=== PATIENT | male | born 1955 | race Asian ===

== ENCOUNTER 2021-09-27 11:13 | Inpatient (IN) | payer OTHER, SELFPAY ==
[~2021-09-27] VITALS: Ht 170.2 cm; Wt 40.8 kg
[2021-09-27 11:30] VITALS: BP_SYST 133
[2021-09-27] MEDS ORDERED: NACL 0.9% 1,000 ML IV ONE (11:30)
[2021-09-27 12:00] LABS: BASOPHILS % (AUTO) 0.1 % (0.0-2.0); EOSINOPHILS % (AUTO) 0.2 % (0.0-4.0); HEMATOCRIT 26.5 % (36-54); HEMOGLOBIN 8.7 g/dL (14.0-18.0); LYMPHOCYTES # (AUTO) 0.6 K/uL (1.0-5.5); LYMPHOCYTES % (AUTO) 4.6 % (20.5-51.5); MEAN CORPUSCULAR HEMOGLOBIN 30 pg (27-31); MEAN CORPUSCULAR HGB CONC 33 % (32-36); MEAN CORPUSCULAR VOLUME 90 fL (79.0-98.0); MONOCYTES # (AUTO) 0.5 K/uL (0.0-1.0); MONOCYTES % (AUTO) 4.2 % (1.7-9.3); NEUTROPHILS # (AUTO) 11.2 K/uL (1.8-7.7); NEUTROPHILS % (AUTO) 90.9 % (40.0-70.0); PLATELET COUNT (AUTO) 395 K/uL (130-430); RED BLOOD CELL COUNT(AUTO) 2.93 MIL/uL (4.2-6.2); RED CELL DISTRIBUTION WIDTH 16.7 % (9.0-15.0); WHITE BLOOD COUNT (AUTO) 12.3 K/uL (4.8-10.8)
[2021-09-27] MEDS ORDERED: LACT1TAB14 PO (12:12)
[2021-09-27] MEDS ORDERED: ACET325T53 PO (12:12)
[2021-09-27] MEDS ORDERED: MEGE20TA3 PO (12:12)
[2021-09-27] MEDS ORDERED: PANT20TA2 PO (12:12)
[2021-09-27] MEDS ORDERED: LOSA25TA3 PO (12:12)
[2021-09-27] MEDS ORDERED: OXYC10TA48 PO (12:12)
[2021-09-27] MEDS ORDERED: PROVENTIL HFA (12:12)
[2021-09-27] MEDS ORDERED: CYCL7.5T20 PO (12:12)
[2021-09-27] MEDS ORDERED: FOLI-43 PO (12:12)
[2021-09-27] MEDS ORDERED: DOCU250C14 PO (12:12)
[2021-09-27] MEDS ORDERED: FLO44 INH (12:12)
[2021-09-27] MEDS ORDERED: GUAI-723 PO (12:12)
[2021-09-27] MEDS ORDERED: FER300L PO (12:12)
[2021-09-27] MEDS ORDERED: SODIUM CHLORIDE (12:12)
[2021-09-27] MEDS ORDERED: AMIN30LI31 PO (12:12)
[2021-09-27] MEDS ORDERED: SUCR1TAB78 PO (12:12)
[2021-09-27] MEDS ORDERED: MULT9LIQ PO (12:12)
[2021-09-27 12:59] LABS: ANION GAP 9 (5-15); CHLORIDE 100 mmol/L (98-107); CREATININE 0.64 mg/dL (0.55-1.30); GLUCOSE 104 mg/dL (70-99); POTASSIUM 3.8 mmol/L (3.5-5.1); SODIUM SERUM 141 mmol/L (136-145); UREA NITROGEN, BLOOD 38 mg/dL (8-21)
[2021-09-27 13:01] LABS: GFR AFRICAN AMERICAN 162 mL/min (>90)
[2021-09-27 13:09] LABS: ACETONE, SERUM NEGATIVE (NEGATIVE); ALANINE AMINOTRANSFERASE 28 U/L (12-78); ALBUMIN 2.5 g/dL (3.4-4.8); ASPARTATE AMINOTRANSFERASE 38 U/L (10-37); TOTAL BILIRUBIN 0.5 mg/dL (0.0-1.0)
[2021-09-27 13:40] LABS: BILIRUBIN,URINE NEGATIVE (NEGATIVE); BLOOD, URINE 1+ (NEGATIVE); CLARITY/URINE CLEAR (CLEAR); COLOR,URINE YELLOW (YELLOW); GLUCOSE,URINE NEGATIVE (NEGATIVE); KETONES,URINE 1+ (NEGATIVE); LEUKOCYTE ESTERASE ,URINE NEGATIVE (NEGATIVE); NITRITE, URINE NEGATIVE (NEGATIVE); PH,URINE 5.5 (5.0-8.0); PROTEIN URINE TRACE (NEGATIVE); UROBILINOGEN,URINE 0.2 (0.2-1.0)
[2021-09-27 13:48] LABS: BACTERIA,URINE FEW /HPF (None Seen); MUCUS,URINE 1+ /LPF (None Seen); WBC,URINE 0-3 /HPF (0-3)
[2021-09-27] MEDS ORDERED: LEVOFLOXACIN IN DEXTROSE 5 % 100 ML IV ONE (14:00)
[2021-09-27] MEDS: D5NS 1,000 ML IV SCH (15:48)
[2021-09-27] MEDS ORDERED: ZOLPIDEM TARTRATE 5 MG TABLET PO PRN (16:30)
[2021-09-27] MEDS ORDERED: IPRATROPIUM/ALBUTEROL SULFATE 3 ML AMPUL.NEB (DUONEB) INH PRN (16:30)
[2021-09-27] MEDS ORDERED: MORPHINE 2 MG/ML INJ. SYRINGE IVP PRN ×2 (16:30)
[2021-09-27] MEDS ORDERED: MUPIROCIN 2% TOPICAL OINTMENT 22 GM NS PRN (16:30)
[2021-09-27] MEDS ORDERED: ACETAMINOPHEN 325 MG TABLET PO PRN ×2 (16:30→17:15)
[2021-09-27] MEDS ORDERED: ONDANSETRON HCL 4 MG/2 ML VIAL IVP PRN (16:30)
[2021-09-27] MEDS ORDERED: LORazepam 2 MG/ML VIAL IVP PRN (16:30)
[2021-09-27] MEDS ORDERED: POTASSIUM CHLORIDE 20 MEQ TAB.PRT.SR PO PRN (16:30)
[2021-09-27] MEDS ORDERED: DOCUSATE SODIUM 100 MG CAPSULE PO PRN (16:30)
[2021-09-27] MEDS ORDERED: NALOXONE HCL 0.4 MG/ML AMP (NARCAN) IVP PRN ×2 (16:30)
[2021-09-27] MEDS ORDERED: MAGNESIUM SULFATE 50 ML IV PRN (16:30)
[2021-09-27 16:31] VITALS: BP_SYST 133
[2021-09-27 21:33] VITALS: BP_SYST 135
[2021-09-27] MEDS: METOPROLOL TARTRATE 25 MG TABLET PO SCH (23:28)
[2021-09-27] MEDS: HEPARIN SODIUM,PORCINE 5,000 UNITS/ML VIAL SUBCUT SCH (23:36)
[2021-09-28 00:23] VITALS: BP_SYST 144
[2021-09-28] MEDS: D5NS 1,000 ML IV SCH ×2 (07:00→15:40)
[2021-09-28 08:00] VITALS: BP_SYST 140
[2021-09-28 08:16] LABS: CREATININE 0.65 mg/dL (0.55-1.30); POTASSIUM 3.5 mmol/L (3.5-5.1)
[2021-09-28 08:22] LABS: HEMATOCRIT 25.5 % (36-54); HEMOGLOBIN 8.4 g/dL (14.0-18.0); LYMPHOCYTES # (AUTO) 0.5 K/uL (1.0-5.5); LYMPHOCYTES % (AUTO) 6.3 % (20.5-51.5); MEAN CORPUSCULAR HEMOGLOBIN 30 pg (27-31); MEAN CORPUSCULAR HGB CONC 33 % (32-36); MEAN CORPUSCULAR VOLUME 90 fL (79.0-98.0); MONOCYTES # (AUTO) 0.6 K/uL (0.0-1.0); MONOCYTES % (AUTO) 7.3 % (1.7-9.3); NEUTROPHILS # (AUTO) 7.2 K/uL (1.8-7.7); NEUTROPHILS % (AUTO) 86.4 % (40.0-70.0); PLATELET COUNT (AUTO) 354 K/uL (130-430); RED BLOOD CELL COUNT(AUTO) 2.84 MIL/uL (4.2-6.2); RED CELL DISTRIBUTION WIDTH 16.4 % (9.0-15.0); WHITE BLOOD COUNT (AUTO) 8.4 K/uL (4.8-10.8)
[2021-09-28] MEDS: PANTOPRAZOLE SODIUM 40 MG/VIAL (PROTONIX) IVP SCH ×2 (08:44→23:25)
[2021-09-28] MEDS: METOPROLOL TARTRATE 25 MG TABLET PO SCH ×2 (08:45→21:00)
[2021-09-28] MEDS: HEPARIN SODIUM,PORCINE 5,000 UNITS/ML VIAL SUBCUT SCH ×2 (08:47→23:29)
[2021-09-28 08:53] LABS: CALCIUM 12.7 mg/dL (8.4-11.0)
[2021-09-28 12:00] VITALS: BP_SYST 143
[2021-09-28] MEDS: LEVOFLOXACIN IN DEXTROSE 5 % 100 ML IV SCH (15:38)
[2021-09-28 15:51] VITALS: BP_SYST 154
[2021-09-28 19:00] VITALS: BP_SYST 150
[2021-09-28 20:00] VITALS: BP_SYST 156
[2021-09-29] VITALS: BP_SYST 148
[2021-09-29] MEDS: D5NS 1,000 ML IV SCH (03:45)
[2021-09-29 07:20] LABS: BASOPHILS % (AUTO) 0.1 % (0.0-2.0); HEMATOCRIT 24.6 % (36-54); LYMPHOCYTES # (AUTO) 0.8 K/uL (1.0-5.5); LYMPHOCYTES % (AUTO) 9.3 % (20.5-51.5); MEAN CORPUSCULAR HEMOGLOBIN 30 pg (27-31); MEAN CORPUSCULAR HGB CONC 33 % (32-36); MEAN CORPUSCULAR VOLUME 91 fL (79.0-98.0); MONOCYTES # (AUTO) 0.4 K/uL (0.0-1.0); MONOCYTES % (AUTO) 4.3 % (1.7-9.3); NEUTROPHILS # (AUTO) 7.9 K/uL (1.8-7.7); NEUTROPHILS % (AUTO) 86.3 % (40.0-70.0); PLATELET COUNT (AUTO) 308 K/uL (130-430); RED BLOOD CELL COUNT(AUTO) 2.69 MIL/uL (4.2-6.2); RED CELL DISTRIBUTION WIDTH 16.8 % (9.0-15.0); WHITE BLOOD COUNT (AUTO) 9.1 K/uL (4.8-10.8)
[2021-09-29 08:10] LABS: CREATININE 0.77 mg/dL (0.55-1.30); POTASSIUM 3.6 mmol/L (3.5-5.1)
[2021-09-29 08:23] LABS: CALCIUM 12.8 mg/dL (8.4-11.0)
[2021-09-29 09:00] VITALS: BP_SYST 130
[2021-09-29] MEDS: METOPROLOL TARTRATE 25 MG TABLET PO SCH ×2 (09:00→22:15)
[2021-09-29] MEDS: HEPARIN SODIUM,PORCINE 5,000 UNITS/ML VIAL SUBCUT SCH ×3 (09:00→22:17)
[2021-09-29] MEDS: PANTOPRAZOLE SODIUM 40 MG/VIAL (PROTONIX) IVP SCH ×3 (09:00→22:18)
[2021-09-29] MEDS ORDERED: D5/0.45 NS 1,000 ML IV SCH (09:00)
[2021-09-29 12:39] VITALS: BP_SYST 146
[2021-09-29 12:58] LABS: INR 1.1 (0.80-1.20); PROTHROMBIN TIME 11.4 SECS (9.5-12.5)
[2021-09-29] MEDS: LEVOFLOXACIN IN DEXTROSE 5 % 100 ML IV SCH (16:25)
[2021-09-29 16:26] VITALS: BP_SYST 155
[2021-09-30] VITALS (7 sets, daily range): BP systolic 143–157
[2021-09-30 06:07] LABS: BASOPHILS % (AUTO) 0.1 % (0.0-2.0); HEMATOCRIT 27.7 % (36-54); LYMPHOCYTES # (AUTO) 0.7 K/uL (1.0-5.5); LYMPHOCYTES % (AUTO) 7.4 % (20.5-51.5); MEAN CORPUSCULAR HEMOGLOBIN 30 pg (27-31); MEAN CORPUSCULAR HGB CONC 32 % (32-36); MEAN CORPUSCULAR VOLUME 91 fL (79.0-98.0); MONOCYTES # (AUTO) 0.4 K/uL (0.0-1.0); MONOCYTES % (AUTO) 4.2 % (1.7-9.3); NEUTROPHILS # (AUTO) 8.7 K/uL (1.8-7.7); NEUTROPHILS % (AUTO) 88.3 % (40.0-70.0); PLATELET COUNT (AUTO) 288 K/uL (130-430); RED BLOOD CELL COUNT(AUTO) 3.04 MIL/uL (4.2-6.2); RED CELL DISTRIBUTION WIDTH 16.3 % (9.0-15.0); WHITE BLOOD COUNT (AUTO) 9.8 K/uL (4.8-10.8)
[2021-09-30 07:10] LABS: CREATININE 0.72 mg/dL (0.55-1.30)
[2021-09-30] MEDS: METOPROLOL TARTRATE 25 MG TABLET PO SCH (07:19)
[2021-09-30] MEDS: HEPARIN SODIUM,PORCINE 5,000 UNITS/ML VIAL SUBCUT SCH (08:24)
[2021-09-30] MEDS: PANTOPRAZOLE SODIUM 40 MG/VIAL (PROTONIX) IVP SCH (08:24)
[2021-09-30] MEDS ORDERED: *TPN PER PHARMACY XX PRN (08:30)
[2021-09-30 09:32] LABS: CALCIUM 12.6 mg/dL (8.4-11.0); POTASSIUM 2.9 mmol/L (3.5-5.1)
[2021-09-30] MEDS ORDERED: POTASSIUM CHLORIDE 40 MEQ, LIDOCAINE JECT 2% PF 100 MG 25 MG in NS 250 ML IV ONE (10:45)
[2021-09-30] MEDS: LEVOFLOXACIN IN DEXTROSE 5 % 100 ML IV SCH (15:56)
== END 2021-09-30 21:25 | DRG 640 ==
LOC: SED 11:13 → SMU 14:11
PROVIDERS: ADMIT General Practice; ATTEND General Practice
PROC: 02HV33Z Insertion of Infusion Device into Superior Vena Cava, Percutaneous Approach (ICD-10-PCS; principal; 2021-09-29)
PROC: B548ZZA Ultrasonography of Superior Vena Cava, Guidance (ICD-10-PCS; 2021-09-29)
DX: R62.7 Adult failure to thrive (principal); J69.0 Pneumonitis due to inhalation of food and vomit; E43 Unspecified severe protein-calorie malnutrition; Z68.1 Body mass index [BMI] 19.9 or less, adult; C79.9 Secondary malignant neoplasm of unspecified site; D63.8 Anemia in other chronic diseases classified elsewhere; Z66 Do not resuscitate; C61 Malignant neoplasm of prostate; Z53.29 Procedure and treatment not carried out because of patient's decision for other reasons; J44.9 Chronic obstructive pulmonary disease, unspecified; K21.9 Gastro-esophageal reflux disease without esophagitis; I10 Essential (primary) hypertension; F03.90 Unspecified dementia, unspecified severity, without behavioral disturbance, psychotic disturbance, mood disturbance, and anxiety; Z20.822 Contact with and (suspected) exposure to COVID-19; K29.70 Gastritis, unspecified, without bleeding; Z87.11 Personal history of peptic ulcer disease; Z91.81 History of falling; Z88.2 Allergy status to sulfonamides; Z79.899 Other long term (current) drug therapy
CPT/HCPCS: 36415; 71045; 80048; 80053; 81000; 82009; 82550; 83036; 83605; 83735; 84100; 84478; 85025; 85610-TC; 85730-TC; 87040; 87081; 92610-GN; 93005; 96360; 99285; C9113; J1644; J1956; J3480; J7050